=== PATIENT | male | born 1980 | race Caucasian/White ===

== ENCOUNTER 2017-02-28 20:54 | Emergency (ER) | payer SELFPAY ==
--- NOTE | ~2017-02-28 | ER ---
PATIENT'S NAME: SAGAR CARL [facility] AGE: 36 Y [address] ROOM: [place] [address] LOCATION: [facility] ADMIT DATE: 02/28/2017 ER/Outpatient Report DISCHARGE DATE: 02/28/2017 FAMILY PHYSICIAN: PHYSICIAN, NO ATTENDING PHYSICIAN: Jeannine Carbone Time of Arrival: 2053. Time of Evaluation: 2109. IDENTIFICATION: A 36-year-old male. CHIEF COMPLAINT: Right elbow pain. HISTORY OF PRESENT ILLNESS: The patient injured his right elbow while playing football yesterday. He landed on a piece of metal. Now has increase in pain and swelling today. No fever or chills. No other problems or concerns. ALLERGIES: NO KNOWN DRUG ALLERGIES. CURRENT MEDICATIONS: Citalopram. MEDICAL PROBLEMS: Denies. PRIOR SURGERIES: Right knee surgery. SOCIAL HISTORY: The patient lives here in [place]. Tobacco use, 10 to 11 cigarettes per day. Alcohol use, denies. Drug use, denies. Tetanus is current as of in 2008. REVIEW OF SYSTEMS: All systems reviewed and negative other than what is noted in the HPI. PHYSICAL EXAMINATION: HEENT: Unremarkable. LUNGS: Clear to auscultation. HEART: Regular rate and rhythm. ABDOMEN: Soft, nondistended, nontender. SKIN: [place], warm, and dry. PATIENT'S NAME: SAGAR CARL [facility] AGE: 36 Y [address] ROOM: [place] [address] LOCATION: [facility] ADMIT DATE: 02/28/2017 ER/Outpatient Report DISCHARGE DATE: 02/28/2017 FAMILY PHYSICIAN: PHYSICIAN, NO ATTENDING PHYSICIAN: Jeannine Carbone EXTREMITIES: The patient has erythema over the right elbow. He has swelling over the right elbow, tender to palpation. Decreased range of motion with flexion and extension. He is able to supinate and pronate with minimal pain. He is tender to palpation over the medial epicondyle. No palpable deformities. LABORATORY DATA AND X-RAYS: X-ray negative for acute fracture or dislocation. CRP less than 0.29. White count 8.5. IMPRESSION: Olecranon traumatic bursitis with cellulitis. PLAN: DAINA, ice, elevate. Tylenol or ibuprofen for pain. Keflex 500 mg t.i.d. for 7 days. No use of his right arm or hand until recheck and follow up with [facility] in 1 to 2 days. Follow up sooner if any problems or concerns. The patient understands and agrees and all questions have been answered. MD FRANK SINGH/carlin /[id number] d: 03/01/17 0421 t: 03/08/17 1839, OUTPATIENT REPORT
[2017-02-28 22:47] LABS: BASOPHIL # 0.1 K/uL (0.0-0.2); BASOPHIL % 0.8 %; EOSINOPHIL # 0.2 K/uL (0.0-0.5); EOSINOPHIL % 2.6 %; HEMATOCRIT 46.1 % (37.0-53.0); HEMOGLOBIN 15.1 g/dL (12.0-17.0); IMMATURE GRANULOCYTE % 0.2 %; LYMPHOCYTE # 3.1 K/uL (0.8-4.0); LYMPHOCYTE % 35.7 %; MCH 30.3 pg (27.0-34.0); MCHC 32.8 gm/dL (32.0-36.5); MCV 92.6 fl (83.0-98.0); MONOCYTE # 0.8 K/uL (0.0-1.0); MONOCYTE % 9.7 %; MPV 9.8 fl (9.4-12.4); NEUTROPHIL # (ANC) 4.4 K/uL (1.4-9.0); NRBC % 0 /100WBC (0-0.00); PLATELET COUNT 296 K/uL (150-450); RBC 4.98 M/uL (4.00-6.00); RDW-CV 13.2 % (11.9-14.6); WBC 8.5 K/uL (4.0-11.0)
== END 2017-02-28 23:11 | disposition disaster alternative care site (69) ==
LOC: GACC 20:54
PROVIDERS: Family Medicine
DX: M70.21 Olecranon bursitis, right elbow (principal); L03.113 Cellulitis of right upper limb; F17.210 Nicotine dependence, cigarettes, uncomplicated; Z98.890 Other specified postprocedural states; Z79.899 Other long term (current) drug therapy; W22.8XXA Striking against or struck by other objects, initial encounter; Y93.61 Activity, american tackle football; Y99.8 Other external cause status

== ENCOUNTER 2017-03-15 05:21 | Emergency (ER) | payer SELFPAY ==
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
== END 2017-03-15 06:15 | disposition disaster alternative care site (69) ==
LOC: GACC 05:21
PROC: 2W3CX1Z Immobilization of Right Lower Arm using Splint (ICD-10-PCS; principal; 2017-03-15)
DX: S62.312A Displaced fracture of base of third metacarpal bone, right hand, initial encounter for closed fracture (principal); J45.909 Unspecified asthma, uncomplicated; F17.210 Nicotine dependence, cigarettes, uncomplicated; Z98.890 Other specified postprocedural states; W22.8XXA Striking against or struck by other objects, initial encounter